=== PATIENT | female | born 1985 | race Asian ===

== ENCOUNTER 2017-04-24 14:30 | Observation (INO) | payer MEDICAID ==
[2017-04-24 15:37] LABS: Basophils # (auto) 0 uL; Basophils % (auto) 0.1 % (0.0-2.0); CONDITION Y; DEFINITIVE SEE PRINTOUT; Eosinophils # (auto) 0 uL; Eosinophils % (auto) 0.2 % (0.0-7.0); Hematocrit 31.8 % (36.0-46.0); Hemoglobin 10.4 g/dL (12.2-16.2); Lymphocytes # (auto) 1.3 uL; Lymphocytes % (auto) 13.2 % (10.0-50.0); Mean Corpuscular Hemoglobin 25.3 pg (28.0-32.0); Mean Corpuscular Hgb Conc. 32.9 g/dL (32.0-36.0); Mean Platelet Volume 9.8 fL (7.4-10.4); Monocytes # (auto) 0.7 uL; Monocytes % (auto) 7.2 % (0.0-12.0); Neutrophils # (auto) 7.8 uL; Neutrophils % (auto) 79.3 % (37.0-80.0); Platelet Count (auto) 291 10^3/uL (140-450); Red Cell Distribution Width 15.5 % (11.6-16.0); White Blood Cell 9.9 10^3/uL (4.4-10.8)
[2017-04-24 15:51] LABS: Urine Bilirubin Negative (Negative); Urine Blood TRACE /uL (Negative); Urine Color Yellow (Yellow); Urine Glucose Normal (Normal); Urine Ketone Negative (Negative); Urine Nitrite Negative (Negative); Urine RBC 1 /hpf (0 - 4); Urine Squamous Epithelial Cell FEW /hpf (<5); Urine Urobilinogen Normal (Negative); Urine pH 6.5 (5.0-8.0)
[2017-04-24 15:57] LABS: INR 0.86 (0.9-1.15); Partial Thromboplastin Time 26.3 sec (22.64-33.71); Prothrombin Time 9.4 sec (9.37-12.3)
[2017-04-24 16:06] LABS: Albumin 2.8 g/dL (3.4-5.0); BUN/Creatinine Ratio 15.1; Calcium 8.6 mg/dL (8.5-10.1); Potassium 3.7 mmol/L (3.5-5.1)
[2017-04-24 16:12] LABS: Bilirubin, Total 0.2 mg/dL (0.2-1.0); Total Protein 7.6 g/dL (6.4-8.2)
[2017-04-24 16:35] LABS: Uric Acid 5.5 mg/dL (2.6-6.0)
== END 2017-04-24 17:00 | disposition home or self-care (01) | DRG 566 ==
LOC: OBSVTOIN 14:30 → INTOOBSV 14:30 → LDRP 14:30
PROVIDERS: ADMIT Specialist; ATTEND Specialist
DX: O26.893 Other specified pregnancy related conditions, third trimester (principal); Z3A.39 39 weeks gestation of pregnancy
CPT/HCPCS: 36415; 59025; 76818; 80053; 81001; 84550; 85025; 85610; 85730; G0378

== ENCOUNTER 2017-04-26 09:20 | Observation (INO) | payer MEDICAID ==
[2017-04-26 10:27] LABS: Basophils # (auto) 0 uL; Basophils % (auto) 0.3 % (0.0-2.0); CONDITION Y; DEFINITIVE SEE PRINTOUT; Eosinophils # (auto) 0 uL; Eosinophils % (auto) 0.5 % (0.0-7.0); Hematocrit 32.1 % (36.0-46.0); Hemoglobin 10.5 g/dL (12.2-16.2); Lymphocytes # (auto) 1.3 uL; Lymphocytes % (auto) 16.4 % (10.0-50.0); Mean Corpuscular Hemoglobin 25.4 pg (28.0-32.0); Mean Corpuscular Hgb Conc. 32.6 g/dL (32.0-36.0); Mean Corpuscular Volume 77.8 fL (80.0-100.0); Mean Platelet Volume 9.5 fL (7.4-10.4); Monocytes # (auto) 0.6 uL; Monocytes % (auto) 7.2 % (0.0-12.0); Neutrophils # (auto) 5.8 uL; Neutrophils % (auto) 75.6 % (37.0-80.0); Platelet Count (auto) 282 10^3/uL (140-450); Red Cell Distribution Width 15.3 % (11.6-16.0); SUSPECT SEE PRINTOUT; White Blood Cell 7.7 10^3/uL (4.4-10.8)
[2017-04-26 10:40] LABS: INR 0.87 (0.9-1.15); Partial Thromboplastin Time 26.7 sec (22.64-33.71); Prothrombin Time 9.5 sec (9.37-12.3)
[2017-04-26 11:00] LABS: Albumin 2.8 g/dL (3.4-5.0); BUN/Creatinine Ratio 16.7; Bilirubin, Total 0.2 mg/dL (0.2-1.0); Calcium 8.6 mg/dL (8.5-10.1); Potassium 3.6 mmol/L (3.5-5.1); Total Protein 7.4 g/dL (6.4-8.2); Uric Acid 5.6 mg/dL (2.6-6.0)
[2017-04-26 12:07] LABS: Urine Bilirubin Negative (Negative); Urine Blood TRACE /uL (Negative); Urine Color Yellow (Yellow); Urine Glucose Normal (Normal); Urine Ketone Negative (Negative); Urine Nitrite Negative (Negative); Urine RBC 1 /hpf (0 - 4); Urine Squamous Epithelial Cell MOD /hpf (<5); Urine Urobilinogen Normal (Negative); Urine pH 6.5 (5.0-8.0)
== END 2017-04-26 11:45 | disposition home or self-care (01) | DRG 566 ==
LOC: LDRP 09:20
PROVIDERS: ADMIT Obstetrics & Gynecology; ATTEND Obstetrics & Gynecology
DX: O26.893 Other specified pregnancy related conditions, third trimester (principal); Z3A.39 39 weeks gestation of pregnancy
CPT/HCPCS: 36415; 59025; 76818; 80053; 81001; 81002; 84156; 84550; 85025; 85610; 85730; G0378

== ENCOUNTER 2017-04-27 20:22 | Inpatient (IN) | payer MEDICAID ==
[~2017-04-27] VITALS: Ht 162.6 cm; Wt 66.7 kg
[2017-04-27] MEDS ORDERED: LACTATED RINGER'S 1,000 ML IV SCH (23:29)
[2017-04-27] MEDS ORDERED: LACT. RINGERS/OXYTOCIN 20UNITS 1,000 ML IV SCH (23:29)
[2017-04-27] MEDS ORDERED: WITCH HAZEL-GLYCERIN PAD TOP PRN (23:30)
[2017-04-27] MEDS ORDERED: PHISODERM TOP SOLN 240ML BTL TOP PRN (23:30)
[2017-04-27] MEDS ORDERED: LIDOCAINE 1% HCL (LOCAL ANESTH.) INJ 20ML MDV IJ ONE (23:30)
[2017-04-27] MEDS ORDERED: METHYLERGONOVINE MALEATE 0.2 MG/ML AMP IM PRN (23:30)
[2017-04-27] MEDS ORDERED: DERMOPLAST 60ML BOTTLE TOP PRN (23:30)
[2017-04-28 00:25] LABS: INR 0.86 (0.9-1.15); Partial Thromboplastin Time 27.1 sec (22.64-33.71); Prothrombin Time 9.4 sec (9.37-12.3)
[2017-04-28 00:27] LABS: Basophils # (auto) 0 uL; Basophils % (auto) 0.3 % (0.0-2.0); CONDITION Y; DEFINITIVE SEE PRINTOUT; Eosinophils # (auto) 0 uL; Eosinophils % (auto) 0.3 % (0.0-7.0); Hematocrit 31.3 % (36.0-46.0); Hemoglobin 10.2 g/dL (12.2-16.2); Lymphocytes # (auto) 1.9 uL; Lymphocytes % (auto) 19.9 % (10.0-50.0); Mean Corpuscular Hemoglobin 25.3 pg (28.0-32.0); Mean Corpuscular Hgb Conc. 32.7 g/dL (32.0-36.0); Mean Corpuscular Volume 77.5 fL (80.0-100.0); Mean Platelet Volume 10.4 fL (7.4-10.4); Monocytes # (auto) 0.7 uL; Monocytes % (auto) 7.1 % (0.0-12.0); Neutrophils # (auto) 6.8 uL; Neutrophils % (auto) 72.4 % (37.0-80.0); Platelet Count (auto) 286 10^3/uL (140-450); Red Cell Distribution Width 15.2 % (11.6-16.0); White Blood Cell 9.4 10^3/uL (4.4-10.8)
[2017-04-28 00:32] LABS: Albumin 2.8 g/dL (3.4-5.0); BUN/Creatinine Ratio 16.3; Calcium 8.5 mg/dL (8.5-10.1); Potassium 3.9 mmol/L (3.5-5.1)
[2017-04-28 00:36] LABS: Bilirubin, Total 0.2 mg/dL (0.2-1.0)
[2017-04-28 00:59] LABS: Uric Acid 5.4 mg/dL (2.6-6.0)
[2017-04-28 01:30] LABS: Urine Bilirubin Negative (Negative); Urine Blood Negative /uL (Negative); Urine Color Yellow (Yellow); Urine Glucose Normal (Normal); Urine Ketone Negative (Negative); Urine Nitrite Negative (Negative); Urine RBC <1 /hpf (0 - 4); Urine Squamous Epithelial Cell FEW /hpf (<5); Urine Urobilinogen Normal (Negative); Urine pH 6.5 (5.0-8.0)
[2017-04-28] MEDS ORDERED: TERBUTALINE SULFATE 1 MG/ML 1ML VIAL SC ONE ×2 (08:03→08:09)
[2017-04-28] MEDS ORDERED: ePHEDrine SULFATE 50 MG/ML AMP IV ONE ×2 (09:15→11:00)
[2017-04-28] MEDS ORDERED: fentaNYL CITRATE 100 MCG/2 ML VL IV ONE ×2 (09:15→11:00)
[2017-04-28] MEDS ORDERED: fentaNYL W ROPIVACAINE 150 ML EPI SCH ×2 (09:15→11:00)
[2017-04-28] MEDS ORDERED: NALOXONE HCL 0.4 MG/ML VIAL IV ONE ×2 (09:15→11:00)
[2017-04-28] MEDS ORDERED: LIDOCAINE HCL 2 %PF INJ 10ML AMP IJ ONE (09:15)
[2017-04-28] MEDS ORDERED: LIDOCAINE 2%HCL (LOCAL ANESTH.) INJ 20ML MDV IJ ONE (09:15)
[2017-04-28] MEDS ORDERED: SODIUM CHLORIDE 0.9% 500 ML IV PRN (10:57)
[2017-04-28] MEDS ORDERED: MORPHINE SULF(PF) 0.5MG/ML 10ML VIAL ONE (12:09)
[2017-04-28] MEDS ORDERED: MIDAZOLAM HCL 1MG/1ML-2 ML VIAL ONE (12:09)
[2017-04-28] MEDS ORDERED: fentaNYL CITRATE 100 MCG/2 ML VL ONE (12:09)
[2017-04-28] MEDS ORDERED: ePHEDrine SULFATE 50 MG/ML AMP ONE (12:10)
[2017-04-28] MEDS ORDERED: SODIUM BICARBONATE INFANT SYR 10 ML SYRG IV ONE (12:10)
[2017-04-28] MEDS ORDERED: SODIUM CHL 0.9% 250 ML ONE (12:10)
[2017-04-28] MEDS ORDERED: OXYTOCIN 10 UNIT/ML 10ML VIAL ONE (12:10)
[2017-04-28] MEDS ORDERED: ceFAZolin 1GM VL ONE (12:10)
[2017-04-28] MEDS ORDERED: LIDOCAINE 2%HCL (LOCAL ANESTH.) INJ 20ML MDV ONE (12:32)
[2017-04-28] MEDS ORDERED: HYDROmorphone HCL 2 MG/ML VL IV PRN (13:15)
[2017-04-28] MEDS ORDERED: ONDANSETRON HCL 4 MG/2 ML VIAL IV PRN (13:15)
[2017-04-28] MEDS ORDERED: NALOXONE HCL 0.4 MG/ML VIAL IV PRN (13:30)
[2017-04-28] MEDS ORDERED: diphenhdrAMINE HCL 50 MG/1 ML VL IV PRN (13:30)
[2017-04-28] MEDS ORDERED: METOCLOPRAMIDE HCL 5MG/ml INJ 2ml VIAL IV ONE (13:30)
[2017-04-28 14:10] VITALS: BP 152/93
[2017-04-28 15:00] VITALS: BP 142/84
[2017-04-28 16:00] VITALS: BP 138/99
[2017-04-28] MEDS: KETOROLAC TROMETH 30 MG/ML 1ML VIAL IV SCH (17:57)
[2017-04-28] MEDS: ceFAZolin 1 GM/50ML D5W BAG IV SCH (17:57)
[2017-04-28 20:23] VITALS: BP 129/76
[2017-04-28 21:00] VITALS: BP 116/77
[2017-04-28 23:42] VITALS: BP 109/70
[2017-04-29] MEDS: KETOROLAC TROMETH 30 MG/ML 1ML VIAL IV SCH ×2 (00:31→06:25)
[2017-04-29] MEDS: ceFAZolin 1 GM/50ML D5W BAG IV SCH ×2 (01:54→11:20)
[2017-04-29 03:35] VITALS: BP 110/77
[2017-04-29 07:03] LABS: Basophils # (auto) 0 uL; DEFINITIVE SEE PRINTOUT; Eosinophils # (auto) 0 uL; Eosinophils % (auto) 0.1 % (0.0-7.0); Hematocrit 27.9 % (36.0-46.0); Hemoglobin 8.9 g/dL (12.2-16.2); Lymphocytes # (auto) 1.2 uL; Lymphocytes % (auto) 11.5 % (10.0-50.0); Mean Corpuscular Hemoglobin 24.9 pg (28.0-32.0); Mean Corpuscular Volume 77.7 fL (80.0-100.0); Monocytes # (auto) 0.5 uL; Monocytes % (auto) 4.6 % (0.0-12.0); Neutrophils % (auto) 83.8 % (37.0-80.0); Platelet Count (auto) 236 10^3/uL (140-450); Red Cell Distribution Width 14.6 % (11.6-16.0); SUSPECT SEE PRINTOUT; White Blood Cell 10.7 10^3/uL (4.4-10.8)
[2017-04-29] MEDS ORDERED: SIMETHICONE 80 MG CHEWABLE TABLET PO PRN (07:15)
[2017-04-29] MEDS ORDERED: HYDROcodone-ACET 5/325MG TAB PO PRN (07:15)
[2017-04-29 07:29] LABS: Albumin 2.1 g/dL (3.4-5.0); BUN/Creatinine Ratio 12.8; Bilirubin, Total 0.2 mg/dL (0.2-1.0); Calcium 8.1 mg/dL (8.5-10.1); Potassium 3.7 mmol/L (3.5-5.1); Total Protein 6.2 g/dL (6.4-8.2)
[2017-04-29 07:37] VITALS: BP 120/72
[2017-04-29] MEDS: LACTATED RINGER'S 1,000 ML IV SCH ×2 (10:15→13:14)
[2017-04-29] MEDS: DOCUSATE SOD 100 MG CAP PO SCH ×2 (11:20→21:37)
[2017-04-29 11:36] VITALS: BP 135/86
[2017-04-29 16:30] VITALS: BP 128/76
[2017-04-29] MEDS: HYDROcodone-ACET 5/325MG TAB PO PRN ×2 (16:34→21:37)
[2017-04-29 19:55] VITALS: BP 128/75
[2017-04-29 23:15] VITALS: BP 133/86
[2017-04-30] VITALS (8 sets, daily range): BP systolic 119–139; BP diastolic 76–95
[2017-04-30] MEDS: IBUPROFEN 800 MG TAB PO PRN ×3 (01:14→21:55)
[2017-04-30] MEDS: HYDROcodone-ACET 5/325MG TAB PO PRN ×2 (03:15→18:44)
[2017-04-30] MEDS ORDERED: PREN-153 PO (03:36)
[2017-04-30] MEDS: DOCUSATE SOD 100 MG CAP PO SCH ×2 (10:30→21:52)
[2017-04-30] MEDS ORDERED: BISACODYL 10 MG RECT SUPP PR ONE (21:39)
[2017-05-01 03:35] VITALS: BP 130/89
[2017-05-01] MEDS: HYDROcodone-ACET 5/325MG TAB PO PRN (03:45)
[2017-05-01 08:30] VITALS: BP 132/86
[2017-05-01] MEDS: DOCUSATE SOD 100 MG CAP PO SCH (08:53)
== END 2017-05-01 11:05 | disposition home or self-care (01) | DRG 540 ==
LOC: LDRP 20:22 → OBSVTOIN 20:22 → INTOOBSV 20:22 → LDRP 04-28 06:06
PROVIDERS: ADMIT Specialist; ATTEND Specialist
PROC: 10D00Z1 Extraction of Products of Conception, Low, Open Approach (ICD-10-PCS; principal; 2017-04-28 12:12)
DX: O13.4 Gestational [pregnancy-induced] hypertension without significant proteinuria, complicating childbirth (principal); O45.93 Premature separation of placenta, unspecified, third trimester; O76 Abnormality in fetal heart rate and rhythm complicating labor and delivery; Z37.0 Single live birth; Z3A.39 39 weeks gestation of pregnancy
CPT/HCPCS: 36415; 51702; 59025; 76818; 80053; 81001; 81002; 84550; 85025; 85610; 85730; 86850; 86900; 86901; 96361; 96366; 96375; J0690; J1885; J2250; J2590; J3010

== ENCOUNTER 2018-06-23 11:10 | Observation (INO) | payer MEDICAID ==
[~2018-06-23 11:10] MED LIST: PREN-153 PO
[2018-06-23] MEDS ORDERED: NIFEdipine 10 MG CAP PO ONE (13:00)
[2018-06-23] MEDS ORDERED: TERBUTALINE SULFATE 1 MG/ML 1ML VIAL SC SCH (13:00)
[2018-06-23] MEDS ORDERED: BETAMETHASONE ACET (6MG/ML) 5ML VIAL IM SCH (13:00)
== END 2018-06-23 14:40 | disposition home or self-care (01) | DRG 566 ==
LOC: EDBD → LDRP 11:10
PROVIDERS: ADMIT Obstetrics & Gynecology; ATTEND Obstetrics & Gynecology
DX: O13.3 Gestational [pregnancy-induced] hypertension without significant proteinuria, third trimester (principal); O60.03 Preterm labor without delivery, third trimester; O09.523 Supervision of elderly multigravida, third trimester; Z3A.30 30 weeks gestation of pregnancy
CPT/HCPCS: 59025; 76818; 81002; 96372; G0378; J0702; J3105

== ENCOUNTER 2018-06-24 13:50 | Observation (INO) | payer MEDICAID ==
[2018-06-24] MEDS ORDERED: BETAMETHASONE ACET (6MG/ML) 5ML VIAL IM ONE (14:15)
== END 2018-06-24 15:20 | disposition home or self-care (01) | DRG 563 ==
LOC: EDBD → LDRP 13:50
PROVIDERS: ADMIT Specialist; ATTEND Specialist
DX: O60.03 Preterm labor without delivery, third trimester (principal); O09.523 Supervision of elderly multigravida, third trimester; Z3A.30 30 weeks gestation of pregnancy
CPT/HCPCS: 59025; 81002; G0378; J0702

== ENCOUNTER 2018-07-01 18:39 | Observation (INO) | payer MEDICAID ==
[2018-07-01] MEDS ORDERED: NIF10C GT (19:26)
[2018-07-01] MEDS ORDERED: TERBUTALINE SULFATE 1 MG/ML 1ML VIAL SC ONE (19:38)
[2018-07-01] MEDS ORDERED: NIFEdipine 10 MG CAP ONE (19:41)
[2018-07-01] MEDS ORDERED: TERBUTALINE SULFATE 1 MG/ML 1ML VIAL SC SCH (19:45)
[2018-07-01] MEDS ORDERED: NIFEdipine 10 MG CAP PO ONE (19:45)
[2018-07-01] MEDS ORDERED: LACTATED RINGER'S 1,000 ML IV ONE (21:15)
[2018-07-01 22:47] LABS: Urine Bacteria FEW /hpf (None Seen); Urine Blood Negative /uL (Negative); Urine Specific Gravity 1.004 (1.001-1.035); Urine WBC 2 /hpf (0 - 5)
== END 2018-07-01 23:34 | disposition home or self-care (01) | DRG 563 ==
LOC: EDBD → LDRP 18:39
PROVIDERS: ADMIT Obstetrics & Gynecology; ATTEND Obstetrics & Gynecology
DX: O60.03 Preterm labor without delivery, third trimester (principal); H53.8 Other visual disturbances; O09.523 Supervision of elderly multigravida, third trimester; O99.350 Diseases of the nervous system complicating pregnancy, unspecified trimester; Z3A.31 31 weeks gestation of pregnancy
CPT/HCPCS: 59025; 76815; 76818; 81001; 81002; 87070; 87086; 87210; 94760; 96360; 96365; 96372; G0378

== ENCOUNTER 2018-07-03 17:15 | Observation (INO) | payer MEDICAID ==
[~2018-07-03 17:15] MED LIST changes: +NIF10C GT
[2018-07-03] MEDS ORDERED: FERR-7 PO (17:38)
[2018-07-03] MEDS ORDERED: NITR100C44 PO (17:38)
== END 2018-07-03 17:55 | disposition home or self-care (01) | DRG 563 ==
LOC: EDBD → LDRP 17:15
PROVIDERS: ADMIT Obstetrics & Gynecology; ATTEND Obstetrics & Gynecology
DX: O60.03 Preterm labor without delivery, third trimester (principal); O09.523 Supervision of elderly multigravida, third trimester; Z3A.31 31 weeks gestation of pregnancy
CPT/HCPCS: 59025; 81002; G0378

== ENCOUNTER 2018-07-06 18:32 | Observation (INO) | payer MEDICAID ==
[~2018-07-06 18:32] MED LIST changes: +FERR-7 PO; +NITR100C44 PO
== END 2018-07-06 19:51 | disposition home or self-care (01) | DRG 566 ==
LOC: LDRP 18:32
PROVIDERS: ADMIT Specialist; ATTEND Specialist
DX: O62.9 Abnormality of forces of labor, unspecified (principal); Z3A.32 32 weeks gestation of pregnancy
CPT/HCPCS: 59025; 81002; G0378; A6257

== ENCOUNTER 2018-07-09 14:05 | Observation (INO) | payer MEDICAID | END 2018-07-09 15:00 | disposition home or self-care (01) | DRG 563 | LOC: LDRP 14:05 | PROVIDERS: ADMIT Specialist; ATTEND Specialist | DX: O60.03 Preterm labor without delivery, third trimester (principal); Z3A.32 32 weeks gestation of pregnancy | CPT/HCPCS: 59025; 81002; G0378 ==

== ENCOUNTER 2018-07-17 19:03 | Observation (INO) | payer MEDICAID ==
[2018-07-17 20:08] LABS: Protein, Urine 7.5 mg/dL (0.0-11.9)
== END 2018-07-17 19:50 | disposition home or self-care (01) | DRG 566 ==
LOC: LDRP 19:03
PROVIDERS: ADMIT Obstetrics & Gynecology; ATTEND Obstetrics & Gynecology
DX: O13.3 Gestational [pregnancy-induced] hypertension without significant proteinuria, third trimester (principal); Z3A.33 33 weeks gestation of pregnancy
CPT/HCPCS: 59025; 81002; 84156; G0378

== ENCOUNTER 2018-07-22 18:46 | Observation (INO) | payer MEDICAID ==
[2018-07-22] MEDS ORDERED: TERBUTALINE SULFATE 1 MG/ML 1ML VIAL SC ONE (19:41)
[2018-07-22] MEDS ORDERED: LACTATED RINGER'S 1,000 ML IV ONE (19:45)
[2018-07-22] MEDS: TERBUTALINE SULFATE 1 MG/ML 1ML VIAL SC SCH ×2 (20:07→20:33)
== END 2018-07-22 22:10 | disposition home or self-care (01) | DRG 566 ==
LOC: LDRP 18:46
PROVIDERS: ADMIT Specialist; ATTEND Specialist
DX: O13.3 Gestational [pregnancy-induced] hypertension without significant proteinuria, third trimester (principal); O62.9 Abnormality of forces of labor, unspecified; Z3A.34 34 weeks gestation of pregnancy
CPT/HCPCS: 59025; 81002; 94760; 96372; G0378; J3105

== ENCOUNTER 2018-07-30 09:00 | Observation (INO) | payer MEDICAID | END 2018-07-30 10:45 | disposition home or self-care (01) | DRG 566 | LOC: LDRP 09:00 | PROVIDERS: ADMIT Obstetrics & Gynecology; ATTEND Obstetrics & Gynecology | DX: O13.3 Gestational [pregnancy-induced] hypertension without significant proteinuria, third trimester (principal); O60.03 Preterm labor without delivery, third trimester; Z3A.35 35 weeks gestation of pregnancy | CPT/HCPCS: 59025; 76818; 81002; G0378 ==

== ENCOUNTER 2018-08-06 15:06 | Observation (INO) | payer MEDICAID ==
[2018-08-06 20:01] LABS: Protein, Urine 13.5 mg/dL (0.0-11.9)
== END 2018-08-06 20:12 | disposition home or self-care (01) | DRG 566 ==
LOC: LDRP 18:43
PROVIDERS: ADMIT Obstetrics & Gynecology; ATTEND Obstetrics & Gynecology
DX: O13.3 Gestational [pregnancy-induced] hypertension without significant proteinuria, third trimester (principal); Z3A.36 36 weeks gestation of pregnancy
CPT/HCPCS: 76818; 84156; G0378; 59025; 81002

== ENCOUNTER 2018-08-11 16:40 | Observation (INO) | payer MEDICAID ==
[2018-08-11 20:03] LABS: Urine Bacteria FEW /hpf (None Seen); Urine Blood Negative /uL (Negative); Urine Specific Gravity 1.003 (1.001-1.035); Urine WBC 6 /hpf (0 - 5)
[2018-08-11 20:03] LABS: Basophils # (auto) 0 uL; Basophils % (auto) 0.4 % (0.0-2.0); Eosinophils # (auto) 0 uL; Eosinophils % (auto) 0.4 % (0.0-7.0); Hematocrit 38.3 % (36.0-46.0); Hemoglobin 13.1 g/dL (12.2-16.2); Lymphocytes # (auto) 1.5 uL; Lymphocytes % (auto) 16.9 % (10.0-50.0); Mean Corpuscular Hemoglobin 31.2 pg (28.0-32.0); Mean Corpuscular Hgb Conc. 34.1 g/dL (32.0-36.0); Mean Corpuscular Volume 91.5 fL (80.0-100.0); Monocytes # (auto) 0.6 uL; Monocytes % (auto) 6.6 % (0.0-12.0); Neutrophils # (auto) 6.7 uL; Neutrophils % (auto) 75.7 % (37.0-80.0); Nucleated Red Blood Cells % 0.1 %; Platelet Count (auto) 222 10^3/uL (140-450); Red Blood Cells 4.19 10^6/uL (4.0-5.20); Red Cell Distribution Width 15.8 % (11.8-14.3); White Blood Cell 8.8 10^3/uL (4.4-10.8)
[2018-08-11 20:15] LABS: INR 0.86 (0.9-1.15); Partial Thromboplastin Time 26.6 sec (23.78-33.04); Prothrombin Time 9.3 sec (9.27-12.13)
[2018-08-11 20:25] LABS: Albumin 3.1 g/dL (3.4-5.0); Calcium 8.7 mg/dL (8.5-10.1); Potassium 3.4 mmol/L (3.5-5.1)
[2018-08-11 20:30] LABS: BUN/Creatinine Ratio 14.9; Bilirubin, Total 0.2 mg/dL (0.2-1.0); Total Protein 7.7 g/dL (6.4-8.2); Uric Acid 4.2 mg/dL (2.6-6.0)
== END 2018-08-11 20:52 | disposition home or self-care (01) | DRG 566 ==
LOC: LDRP 18:53
PROVIDERS: ADMIT Obstetrics & Gynecology; ATTEND Obstetrics & Gynecology
DX: O13.3 Gestational [pregnancy-induced] hypertension without significant proteinuria, third trimester (principal); O60.03 Preterm labor without delivery, third trimester; O62.9 Abnormality of forces of labor, unspecified; O09.523 Supervision of elderly multigravida, third trimester; Z3A.37 37 weeks gestation of pregnancy
CPT/HCPCS: 36415; 59025; 76818; 80053; 81001; 81002; 84550; 85025; 85610; 85730; G0378

== ENCOUNTER 2018-08-19 19:26 | Observation (INO) | payer MEDICAID | END 2018-08-19 21:27 | disposition home or self-care (01) | DRG 566 | LOC: LDRP 19:26 | PROVIDERS: ADMIT Obstetrics & Gynecology; ATTEND Obstetrics & Gynecology | DX: O13.3 Gestational [pregnancy-induced] hypertension without significant proteinuria, third trimester (principal); O09.523 Supervision of elderly multigravida, third trimester; Z3A.38 38 weeks gestation of pregnancy | CPT/HCPCS: 59025; 76818; 81002; G0378 ==

== ENCOUNTER 2023-01-05 00:32 | Emergency (ER) | payer MEDICAID ==
[~2023-01-05] VITALS: Ht 157.5 cm; Wt 63.4 kg
[~2023-01-05 00:32] MED LIST changes: -FERR-7 PO; -NIF10C GT; -NITR100C44 PO; -PREN-153 PO; +PREN1TAB71 PO
[2023-01-05 01:52] LABS: Basophils # (auto) 0 10 ^3/uL (0-0.2); Basophils % (auto) 0.4 % (0.0-2.0); Eosinophils # (auto) 0 10 ^3/uL (0-0.8); Eosinophils % (auto) 0.3 % (0.0-7.0); Hematocrit 37.8 % (36.0-46.0); Hemoglobin 13.3 g/dL (12.2-16.2); Lymphocytes # (auto) 1.7 10 ^3/uL (0.4-5.4); Lymphocytes % (auto) 18.2 % (10.0-50.0); Mean Corpuscular Hemoglobin 30.7 pg (28.0-32.0); Mean Corpuscular Volume 87.7 fL (80.0-100.0); Monocytes # (auto) 0.5 10 ^3/uL (0-1.3); Monocytes % (auto) 5.2 % (0.0-12.0); Neutrophils # (auto) 6.9 10 ^3/uL (1.6-8.6); Neutrophils % (auto) 75.9 % (37.0-80.0); Red Blood Cells 4.31 10^6/uL (4.0-5.20); Red Cell Distribution Width 11.8 % (11.8-14.3); White Blood Cell 9.1 10^3/uL (4.4-10.8)
[2023-01-05 01:55] LABS: Albumin 3.7 g/dL (3.4-5.0); BUN/Creatinine Ratio 19.7 (10.0-20.0); Calcium 9.2 mg/dL (8.5-10.1); Potassium 3.4 mmol/L (3.5-5.1)
[2023-01-05 01:58] LABS: Bilirubin, Total 0.2 mg/dL (0.2-1.0); Total Protein 8.5 g/dL (6.4-8.2)
[2023-01-05] MEDS ORDERED: PROM1SOL4 PO (07:13)
[2023-01-05] MEDS ORDERED: CEPH500C PO (07:13)
[2023-01-05 07:17] VITALS: BP 166/104
== END 2023-01-05 07:22 | disposition home or self-care (01) ==
LOC: ER 00:32
DX: J20.9 Acute bronchitis, unspecified (principal); J03.90 Acute tonsillitis, unspecified; R07.89 Other chest pain
CPT/HCPCS: 36415; 71045; 80053; 85025